=== PATIENT | female | born 1965 | race Caucasian/White ===

== ENCOUNTER 2017-03-11 07:20 | Emergency (ER) | payer BC ==
--- NOTE | 2017-03-11 07:30 | UC ---
Shoulder Pain HPI - HPI Summary HPI Summary: 52 YEAR OLD FEMALE PRESENTS WITH COMPLAINS OF LEFT SHOULDER PAIN AFTER PLACING HER ARM ON THE CAR WINDOW FOR A LONG PERIOD OF TIME. - History of Current Complaint Stated Complaint: SHOULDER AND ARM PAIN Time Seen by Provider: 03/11/17 07:30 Hx Obtained From: Patient Onset/Duration: Gradual Onset Timing: Constant Severity Initially: Moderate Severity Currently: Moderate Pain Scale Used: 0-10 Numeric - 8 Character: Sharp, Aching, Throbbing Aggravating Factor(s): Movement Associated Signs And Symptoms: Positive: Swelling - Allergies/Home Medications Allergies/Adverse Reactions: Allergies Allergy/AdvReac Type Severity Reaction Status Date / Time Beta Adrenergic Blockers Allergy Severe Anaphylatic Verified 03/11/17 07:36 Shock Iodine Allergy Severe Anaphylatic Verified 03/11/17 07:36 Shock Shellfish Allergy Allergy Severe Anaphylatic Verified 03/11/17 07:36 Shock Home Medications: Home Medications Rivaroxaban TAB(*) [Xarelto 10 mg (*)] 10 mg PO DAILY 03/11/17 [History Confirmed 03/11/17] PMH/Surg Hx/FS Hx/Imm Hx Previously Healthy: Yes - Social History Alcohol Use: None Substance Use Type: None Smoking Status (MU): Never Smoked Tobacco Review of Systems Constitutional: Negative Skin: Negative Eyes: Negative ENT: Negative Respiratory: Negative Cardiovascular: Negative Gastrointestinal: Negative Genitourinary: Negative Motor: Negative Neurovascular: Negative Musculoskeletal: Myalgia, Other: - LEFT SHOULDER PAIN Neurological: Negative Psychological: Negative All Other Systems Reviewed And Are Negative: Yes Physical Exam Triage Information Reviewed: Yes Eye Exam: Normal ENT Exam: Normal Dental Exam: Normal Neck exam: Normal Neck: Positive: 1 Respiratory Exam: Normal Cardiovascular Exam: Normal Abdominal Exam: Normal Musculoskeletal: Positive: Other: - LEFT SHOULDER PAIN Neurological Exam: Normal Psychological Exam: Normal Skin Exam: Normal Shoulder Course/Dx - Differential Dx/Diagnosis Provider Diagnoses: LEFT FROZEN SHOULDER Discharge - Discharge Plan Condition: Stable Disposition: HOME Prescriptions: Methocarbamol TAB* [Robaxin 500 MG TAB*] 500 mg PO TID PRN #30 tab PRN Reason: Pain - Back Methylprednisolone [Medrol Dosepak 4 MG*] 4 mg PO .SEE DOREEN INSTRUCTION #21 tab Patient Education Materials: Adhesive Capsulitis (ED) Referrals: Chela Moreno MD [Primary Care Provider] - Fili Vinson MD [Medical Doctor] -
[2017-03-11 07:36] VITALS: BP 138/58
== END 2017-03-11 07:58 | disposition home or self-care (01) ==
LOC: UCEAST 07:20
DX: M75.02 Adhesive capsulitis of left shoulder (principal); Z88.8 Allergy status to other drugs, medicaments and biological substances; Z91.040 Latex allergy status; Z91.013 Allergy to seafood
CPT/HCPCS: 99212; G0463

== ENCOUNTER 2017-07-19 06:52 | Day surgery (SDC) | payer BC ==
[~2017-07-19 06:52] MED LIST: Buffered Lidocaine 0.9% SYRIN* 5 ML/SYR SYRINGE INTRADERM ONE; Dexamethasone IV* 4 MG/ML 1 ML (4 MG) IV SLOW PU ONE; Famotidine IV* 10 MG/ML 2 ML (20 mg) IV ONE; Scopolamine 1.5 mg* PATCH TRANSDERM ONE
[2017-07-19] MEDS ORDERED: Buffered Lidocaine 0.9% SYRIN* 5 ML/SYR SYRINGE ONE (07:02)
[2017-07-19] MEDS ORDERED: Dexamethasone IV* 4 MG/ML 1 ML (4 MG) ONE (07:02)
[2017-07-19] MEDS ORDERED: Scopolamine 1.5 mg* PATCH ONE (07:02)
[2017-07-19] MEDS ORDERED: Famotidine IV* 10 MG/ML 2 ML (20 mg) ONE (07:02)
[2017-07-19] MEDS ORDERED: oxyCODONE/Acetamin 5/325 MG* TAB PO PRN (08:31)
[2017-07-19] MEDS ORDERED: HYDROcodone/ACETAMIN 5-325 MG* 1 TAB PO PRN (08:31)
[2017-07-19] MEDS ORDERED: fentaNYL* 50 MCG/ML 2 ML VIAL (100 MCG VIAL) IV PRN (08:31)
[2017-07-19] MEDS ORDERED: PROCHLORPERAZINE INJ 5 MG/ML 2 ML VIAL IV PRN (08:31)
[2017-07-19] MEDS ORDERED: Midazolam* 1 MG/ML 5 ML VIAL (5 MG) ONE (08:48)
[2017-07-19] MEDS ORDERED: fentaNYL* 50 MCG/ML 5 ML VIAL (250 MCG VIAL) ONE (08:48)
[2017-07-19] MEDS ORDERED: Lidocaine 2% PF * 5 ML VIAL ONE (09:01)
[2017-07-19] MEDS ORDERED: Propofol* 10 MG/ML 20 ML BTL IV PUSH ONE (09:01)
[2017-07-19] MEDS ORDERED: Ondansetron INJ* 2 MG/ML VIAL ONE (09:29)
[2017-07-19] MEDS ORDERED: oxyCODONE/Acetamin 5/325 MG* TAB ONE (10:21)
[2017-07-19] MEDS ORDERED: fentaNYL* 50 MCG/ML 2 ML VIAL (100 MCG VIAL) ONE (10:22)
[2017-07-19] MEDS ORDERED: PROCHLORPERAZINE INJ 5 MG/ML 2 ML VIAL ONE (10:41)
[2017-07-19 12:18] VITALS: BP 137/75
--- NOTE | 2017-07-19 23:34 | OP ---
AMENDED REPORT NOW INCLUDES DATE OF OPERATION - ESIGNED BEFORE ADJUSTMENT * DATE OF OPERATION: 07/19/17 - [facility] DATE OF : 69 SURGEON: Louie Sevilla MD PLUMBER ASSISTANT: None. ANESTHESIA: General endotracheal tube. PRE-OP DIAGNOSIS: Menorrhagia. POST-OP DIAGNOSIS: Menorrhagia. OPERATIVE PROCEDURE: D and C, hysteroscopy, endometrial ablation. ESTIMATED BLOOD LOSS: Minimal. SPECIMEN: Includes endometrium. FINDINGS: Include a normal cavity, both tubal ostia well visualized. DESCRIPTION OF PROCEDURE: The patient identified, procedure identified as a D and C, hysteroscopy, endometrial ablation, was taken to the operating room, prepped and draped in the usual fashion in the dorsal lithotomy position under general anesthesia. Saline was used for preparation since the patient was allergic to BETADINE. Two single-tooth tenaculums were placed on the anterior lip of the cervix. The cervix was easily dilated up to #8 Hegar dilator. A hysteroscope was inserted and the above findings were noted. The hysteroscope was removed and a sharp curette was inserted and sharp curettage was performed with a gritty sensation felt along the circumference. Hysteroscope was removed and a NovaSure ablation device was opened. The array was checked. The device was passed into the uterine cavity. The endocervical length was 4 cm. The sounding length had been 9 cm making the cavity length 5. The opening width was up to 4.2. Power setting of 116, perforation test was performed, and the device passed. NovaSure ablation was enabled and then took place for 46 seconds. At the end of the procedure, the device was removed and the hysteroscope was inserted and good ablation was noted throughout the cavity. No perforations or other findings were noted. All instruments were removed from the vagina and the patient returned to recovery room in stable condition. All sponge, instrument counts were correct. [id number]/[facility] #: [id number] [facility]
[2017-07-22] MEDS ORDERED: Scopolamine PATCH Remove* 1 NOTE MISC PATCH OFF ONE (06:00)
== END 2017-07-19 12:20 | disposition home or self-care (01) ==
LOC: OR 06:52
PROVIDERS: ATTEND Obstetrics & Gynecology
DX: N92.1 Excessive and frequent menstruation with irregular cycle (principal); N84.0 Polyp of corpus uteri; I10 Essential (primary) hypertension; J45.909 Unspecified asthma, uncomplicated; Z86.718 Personal history of other venous thrombosis and embolism; Z79.01 Long term (current) use of anticoagulants; Z68.42 Body mass index [BMI] 45.0-49.9, adult
CPT/HCPCS: 81025; 88305; A9270-GY; J0780; J1100; J2250; J2405; J2704; J3010